=== PATIENT | female | born 1975 | race Caucasian/White ===

== ENCOUNTER 2022-01-30 08:16 | Outpatient (CLI) | payer OTHER, SELFPAY ==
[2022-01-30 13:06] LABS: Basophils Percent Auto 0.8 % (0.2-1.2); Eosinophils Absolute Auto 0.1 K/mm3 (0-0.3); Eosinophils Percent Auto 1.2 % (0-4.4); Hemoglobin 13.6 g/dL (12.0-15.0); Immature Granulocyte Absolute 0.01 K/mm3 (0.00-0.031); Immature Granulocyte Percent A 0.2 % (0-0.5); Lymphocytes Absolute Auto 1.73 K/mm3 (0.9-3.2); Lymphocytes Percent Auto 33.7 % (18.3-44.2); Mean Corpuscular Hemoglobin 32.6 pg (26-34); Mean Corpuscular Volume 95.9 fl (80-100); Mean Platelet Volume 9.4 fl (7.4-10.4); Monocytes Absolute Auto 0.4 K/mm3 (0.1-0.6); Monocytes Percent Auto 8.2 % (2.6-8.5); Neutrophils Absolute Auto 2.9 K/mm3 (1.3-6.7); Neutrophils Percent Auto 55.9 % (45.5-73.1); Platelet Count Result 270 k/mm3 (150-375); Red Blood Count 4.17 M/mm3 (4.2-5.4); Red Cell Distribution Width 11.9 % (11.5-14.5); White Blood Count 5.1 K/mm3 (4.5-10.0)
[2022-01-30 13:08] LABS: Alanine Aminotransferase 20 U/L (6-35); Albumin Level 4.3 g/dL (3.5-5.1); Alkaline Phosphatase 50 U/L (38-126); Anion Gap 12 mmol/L (8-16); Aspartate Amino Transferase 35 U/L (14-36); Bilirubin,Total 0.7 mg/dL (0.2-1.3); Blood Urea Nitrogen 13 mg/dL (7-17); Calcium 8.7 mg/dL (8.4-10.2); Carbon Dioxide 28 mmol/L (22-30); Chloride 103 mmol/L (98-107); Cholesterol 176 mg/dL (0-200); Estimated Glomerular Filt Rate > 60; Glucose 93 mg/dL (65-110); HDL Direct 67 mg/dL; Potassium 4.5 mmol/L (3.4-5.0); Sodium 143 mmol/L (137-145); Triglycerides 43 mg/dL (<150)
[2022-01-30 13:19] LABS: LDL Cholesterol Direct 82 mg/dL
[2022-01-30 13:41] LABS: Thyroid Stimulating Hormone 0.101 uIU/mL (0.465-4.680)
== END 2022-01-30 08:17 | disposition home or self-care (01) ==
LOC: ANHGOSHLAB 08:19
PROVIDERS: PCP Internal Medicine; Visit Provider Nurse Practitioner
DX: E03.9 Hypothyroidism, unspecified (principal); Z13.220 Encounter for screening for lipoid disorders
CPT/HCPCS: 36415; 80053; 80061; 84443; 85025

== ENCOUNTER 2022-11-24 08:16 | Outpatient (CLI) | payer OTHER, SELFPAY ==
[2022-11-24 13:05] LABS: Basophils Absolute Auto 0.1 K/mm3 (0.0-0.1); Basophils Percent Auto 1.2 % (0.2-1.2); Eosinophils Absolute Auto 0.2 K/mm3 (0-0.3); Eosinophils Percent Auto 3.8 % (0-4.4); Hematocrit 38.3 % (37.0-47.0); Hemoglobin 13.2 g/dL (12.0-15.0); Immature Granulocyte Absolute 0.01 K/mm3 (0.00-0.031); Immature Granulocyte Percent A 0.2 % (0-0.5); Lymphocytes Absolute Auto 1.83 K/mm3 (0.9-3.2); Lymphocytes Percent Auto 31.5 % (18.3-44.2); Mean Corpuscular HGB Conc 34.5 g/dl (32-36); Mean Corpuscular Volume 95.8 fl (80-100); Mean Platelet Volume 9.8 fl (7.4-10.4); Monocytes Absolute Auto 0.5 K/mm3 (0.1-0.6); Monocytes Percent Auto 8.8 % (2.6-8.5); Neutrophils Absolute Auto 3.2 K/mm3 (1.3-6.7); Neutrophils Percent Auto 54.5 % (45.5-73.1); Platelet Count Result 219 k/mm3 (150-375); Red Cell Distribution Width 11.9 % (11.5-14.5); White Blood Count 5.8 K/mm3 (4.5-10.0)
[2022-11-24 13:19] LABS: Alanine Aminotransferase 15 U/L (6-35); Albumin Level 4.3 g/dL (3.5-5.1); Alkaline Phosphatase 45 U/L (38-126); Anion Gap 7 mmol/L (8-16); Aspartate Amino Transferase 26 U/L (14-36); Bilirubin,Total 0.7 mg/dL (0.2-1.3); Blood Urea Nitrogen 12 mg/dL (7-17); Calcium 8.6 mg/dL (8.4-10.2); Carbon Dioxide 26 mmol/L (22-30); Chloride 105 mmol/L (98-107); Estimated Glomerular Filt Rate > 60; Glucose 88 mg/dL (65-110); Potassium 4.2 mmol/L (3.4-5.0); Sodium 138 mmol/L (137-145)
== END 2022-11-24 08:17 | disposition home or self-care (01) ==
LOC: ANHGOSHLAB 08:17
PROVIDERS: PCP Internal Medicine; Visit Provider Nurse Practitioner
DX: E03.9 Hypothyroidism, unspecified (principal); Z13.29 Encounter for screening for other suspected endocrine disorder
CPT/HCPCS: 36415; 80053; 84443; 85025

== ENCOUNTER 2024-03-29 08:04 | Outpatient (CLI) | payer OTHER, SELFPAY ==
[2024-03-29 14:52] LABS: Basophils Percent Auto 0.9 % (0.2-1.2); Eosinophils Absolute Auto 0.1 K/mm3 (0-0.3); Eosinophils Percent Auto 1.9 % (0-4.4); Hematocrit 37.3 % (37.0-47.0); Hemoglobin 12.7 g/dL (12.0-15.0); Immature Granulocyte Absolute 0.01 K/mm3 (0.00-0.031); Immature Granulocyte Percent A 0.2 % (0-0.5); Lymphocytes Absolute Auto 1.52 K/mm3 (0.9-3.2); Lymphocytes Percent Auto 32.6 % (18.3-44.2); Mean Corpuscular Hemoglobin 32.6 pg (26-34); Mean Corpuscular Volume 95.9 fl (80-100); Mean Platelet Volume 9.5 fl (7.4-10.4); Monocytes Absolute Auto 0.4 K/mm3 (0.1-0.6); Monocytes Percent Auto 8.6 % (2.6-8.5); Neutrophils Absolute Auto 2.6 K/mm3 (1.3-6.7); Neutrophils Percent Auto 55.8 % (45.5-73.1); Platelet Count Result 264 k/mm3 (150-375); Red Blood Count 3.89 M/mm3 (4.2-5.4); Red Cell Distribution Width 12.2 % (11.5-14.5); White Blood Count 4.7 K/mm3 (4.5-10.0)
[2024-03-29 17:07] LABS: Alanine Aminotransferase 15 U/L (6-35); Albumin Level 4.1 g/dL (3.5-5.1); Alkaline Phosphatase 44 U/L (38-126); Anion Gap 7 mmol/L (4-12); Aspartate Amino Transferase 34 U/L (14-36); Bilirubin,Total 0.7 mg/dL (0.2-1.3); Blood Urea Nitrogen 13 mg/dL (7-17); Calcium 8.6 mg/dL (8.4-10.2); Carbon Dioxide 29 mmol/L (22-30); Chloride 103 mmol/L (98-107); Cholesterol 170 mg/dL (0-200); Estimated Glomerular Filt Rate > 60; Glucose 76 mg/dL (65-110); HDL Direct 61 mg/dL; Potassium 4.5 mmol/L (3.4-5.0); Sodium 139 mmol/L (137-145); Triglycerides 42 mg/dL (<150)
[2024-03-29 17:10] LABS: Free T4 Free Thyroxine 1.25 ng/dL (0.78-2.19); Vitamin D 25 Hydroxy 33.7 ng/mL
[2024-03-29 17:18] LABS: LDL Cholesterol Direct 91 mg/dL
[2024-03-30 21:42] LABS: Triiodothyronine T3 Free 3.2 pg/mL (2.3-4.2)
== END 2024-03-29 08:05 | disposition home or self-care (01) ==
LOC: ANHGOSHLAB 08:06
PROVIDERS: PCP Internal Medicine; Visit Provider Nurse Practitioner
DX: E03.9 Hypothyroidism, unspecified (principal)
CPT/HCPCS: 36415; 80053; 80061; 82306; 84439; 84443; 84481; 85025

== ENCOUNTER 2024-07-31 01:10 | Day surgery (SDC) | payer OTHER, SELFPAY ==
[2024-07-25 08:38] VITALS: BMI 24.2
--- OUTSIDE RECORDS SUMMARY | 2024-07-31 01:13 | XMS_ITS | Clinical Summary ---
Author Organization [facility] Address [address] Attn: Marquita Prelukyara ADT JOSELYN ESTRELLA [address] Care Team Providers Care Medical Communication Specialist Name Role Phone Unavailable Primary Care Provider Unavailabl e Allergies No known active allergies Medications busPIRone (BUSPAR) 10 mg tablet Take 1 Tablet (10 mg) by mouth 3 times daily as needed. 90 Tablet 2 01/13/2022 8:25 AM CDT 2 Active busPIRone (BUSPAR) 10 mg tablet Take 1 Tablet by mouth Three times daily 270 Tablet 2 Active busPIRone (BUSPAR) 10 mg tablet Take 1 Tablet (10 mg) by mouth 3 times daily. 270 Tablet 1 02/15/2022 11:35 AM URBAN SOCIOLOGIST 2 Active sertraline (ZOLOFT) 50 mg tablet Take 1 Tablet (50 mg) by mouth daily. 90 Tablet 1 2 Active busPIRone (BUSPAR) 10 mg tablet Take 1 Tablet by mouth Three times daily 270 Tablet 1 11/25/2022 10:19 AM CDT 2 Active sertraline (ZOLOFT) 100 mg tablet Take 0.5 Tablets (50 mg) by mouth daily. 90 Tablet 1 12/15/2022 12:32 PM CDT 2 Active SUMAtriptan (IMITREX) 100 mg tablet Take 1 tablet by mouth at onset of headache; if no relief, may repeat 1 tablet after at least 2 hrs; max = 2 tabs/24 hrs 9 Tablet 1 03/11/2022 10:35 AM URBAN SOCIOLOGIST 2 Active levothyroxine 25 mcg tablet Take 1 Tablet (25 mcg) by mouth daily. 90 Tablet 03/11/2022 10:35 AM URBAN SOCIOLOGIST 2 Active busPIRone (BUSPAR) 10 mg tablet Take 1 Tablet (10 mg) by mouth 3 times daily. 270 Tablet 1 07/13/2023 5:23 PM CDT 3 Active sertraline (ZOLOFT) 100 mg tablet Take 0.5 Tablets (50 mg) by mouth daily. 90 Tablet 1 3 Active busPIRone (BUSPAR) 10 mg tablet Take 1 Tablet (10 mg) by mouth 3 times daily. 270 Tablet 1 4 Active sertraline (ZOLOFT) 50 mg tablet Take 1 Tablet (50 mg) by mouth daily. 90 Tablet 1 09/07/2023 7:29 PM CDT 4 Active SUMAtriptan (IMITREX) 100 mg tablet Take 1 tablet by mouth at onset of headache; if no relief, may repeat 1 tablet after at least 2 hrs; max = 2 tabs/24 hrs 9 Tablet 1 11/26/2023 2:03 PM CDT 4 Active sertraline (ZOLOFT) 50 mg tablet Take 1 Tablet (50 mg) by mouth daily. 90 Tablet 1 11/26/2023 2:03 PM CDT 4 Active sertraline (ZOLOFT) 50 mg tablet Take 1 Tablet (50 mg) by mouth daily. 90 Tablet 1 4 Active levothyroxine 25 mcg tablet Take 1 Tablet (25 mcg) by mouth daily. Need appointment for further refills. 30 Tablet 4 Active Encounters Date Type Department Care Team Description 05/23/2024 External Device Data [facility] ABSTRACTION Provider, Abstract 05/23/2024 External Device Data [facility] ABSTRACTION Provider, Abstract from Last 3 Months Immunizations Immunization Administration Dates Next Due INFLUENZA VACCINE QUADRIVALENT 6 MOS UP PF IM Social History Tobacco Use Types Packs/Day Years Used Date Smoking Tobacco: Never Assessed Comments Unknown Sex and Gender Information Value Date Recorded Sex Assigned at Not on file Legal Sex Female 3:27 PM CDT Gender Identity Not on file Sexual Orientation Not on file Plan of Treatment Health Maintenance Due Date Last Done Comments DTAP/TDAP/TD VACCINES (1 - Tdap) 1996 HEPATITIS B VACCINES (1 of 3 - 19+ 3-dose series) 1996 HPV/Cotest (21-29) 1998 CERVICAL CANCER SCREENING 09/18/2007 HPV/Cotest (30-65) 09/18/2007 PAP SMEAR 09/18/2007 BREAST CANCER SCREENING 2017 COLORECTAL SCREENING 2022 Colorectal Cancer Screening 2022 FIT-DNA Q 3 years 2022 FIT/FOBT Q 1 year 2022 Flex Sig/CT Colonography Q 5 years 2022 INFLUENZA VACCINE (#1) 2023 12/15/2022 HPV VACCINES Aged Out No longer eligi ble based on patient's age to complete this topic Insurance RX [facility] [employer] (INTERNAL) [facility]
--- OUTSIDE RECORDS SUMMARY | 2024-07-31 01:13 | XMS_ITS ---
Author Organization Unknown Medications Medication Instructions Effective Dates (start - stop) Status sumatriptan 100 MG Oral Tablet 2023-03-19 T00:00:00Z - Completed sumatriptan 100 MG Oral Tablet 2023 T00:00:00Z - Completed sumatriptan 100 MG Oral Tablet 2023-08-12 T00:00:00Z - Completed sumatriptan 100 MG Oral Tablet 2023-05-06 T00:00:00Z - Completed sumatriptan 100 MG Oral Tablet 2023-07-05 T00:00:00Z - Completed sertraline 50 MG Oral Tablet [id number] 0:00:00Z - Completed nitrofurantoin, macrocrystal s 25 MG / nitrofurantoin, monohydrate 75 MG Oral Capsule - Completed buspirone hydrochloride 10 M G Oral Tablet - Completed sumatriptan 100 MG Oral Tablet 2023-02-19 T00:00:00Z - Completed levothyroxine sodium 0.025 M G Oral Tablet - Completed sertraline 100 MG Oral Tablet 2022-12-14 00:00:00Z - Completed buspirone hydrochloride 10 M G Oral Tablet - Completed sumatriptan 100 MG Oral Tablet 2022-12-31 T00:00:00Z - Completed levothyroxine sodium 0.025 M G Oral Tablet - Completed sumatriptan 100 MG Oral Tablet 2022-11-25 T00:00:00Z - Completed Patient Care team information Name Category Status Period Participants - - Proposed period not known -
--- OUTSIDE RECORDS SUMMARY | 2024-07-31 01:13 | XMS_ITS | Referral Summary ---
Author Organization [facility] Address [address] [place] [address] Care Team Providers Care Horseshoer Name Role Phone Omar Fall DO Primary Care Provider [phone]- [phone] Allergies No known active allergies Medications Lactobacillus acidophilus (PROBIOTIC) 10 billion cell capsule 0 0 11/25/2012 Active multivitamin tablet tabletIndication s:Vitamin Deficiency Prevention Take 1 tablet by mouth. Active levothyroxine sodium (TIROSINT) 25 mcg capsule Take 25 mcg by mouth daily Active SUMAtriptan (IMITREX) 100 mg tabletIndication s:Migraine without status migrainosus, not intractable, unspecified migraine type TAKE ONE TABLET BY MOUTH AT ONSET OF HEADACHE. MAY REPEAT DOSE IN 2 HOURS IF NEEDED. DO NOT EXCEED 2 TABLETS IN 24 HOURS, 10 DAYS PER MONTH 12 tablet 1 05/15/2021 Active Active Problems Problem Noted Date Diagnosed Date Migraine without aura and wi thout status migrainosus, not intractable 12/24/2019 Migraine without status migrainosus, not intract able 06/05/2018 Migraine 01/02/2013 Overview (06/17/2016): Migraine Social History Tobacco Use Types Packs/Day Years Used Date Smoking Tobacco: Never Smokeless Tobacco: Never Alcohol Use Standard Drinks/Week Comments Yes 0 (1 standard drink = 0.6 oz pur e alcohol) Comments Unknown Sex and Gender Information Value Date Recorded Sex Assigned at Not on file Legal Sex Female 2:59 AM PROJECT LEADER Gender Identity Not on file Sexual Orientation Not on file Last Filed Vital Signs Vital Sign Reading Time Taken Comments Blood Pressure 126/81 06/23/2019 10:16 AM CDT Pulse 72 12/16/2017 3:38 PM CDT Temperature - - Respiratory Rate 16 12/16/2017 3:38 PM CDT Oxygen Saturation - - Inhaled Oxygen Concentration - - Weight 65.8 kg (145 lb) 09/13/2020 10:11 AM CDT Height 167.6 cm (5' 6 ) 09/13/2020 10:11 AM CDT Body Mass Index 23.4 09/13/2020 10:11 AM CDT Plan of Treatment Not on file Insurance [employer] Member Subscriber Plan / Payer (Ef fective 2019-Present) Name:Estelle Link Member ID:[id number] Relation to Subscriber:Self Name:Estelle Link Subscriber ID:[id number] Payer ID:[id number] Type:[employer] Address: [address] Care Teams Horseshoer Relationship Specialty Start Date End Date Omar Fall DO [facility] - General 04/09/14
--- OUTSIDE RECORDS SUMMARY | 2024-07-31 01:13 | XMS_ITS | Clinical Summary ---
Author Organization [facility] Address [address] [place] [address] Care Team Providers Care Emergency Medcl Emt Name Role Phone Omar Fall DO Primary Care Provider Source Comments [facility],non-owned Affiliates and Associated Physician Practices is amultiple site organization consisting of ambulatory clinics and hospital sitesin [place], [place], [place] and [place]. This disclosure is being madepursuant to the Care Everywhere program and may not contain all information available regarding this patient. Last updated 17.[facility] Allergies No known active allergies Medications * Be aware that medications may not be up to date on this document. Alwaysverify current medications with the patient. Probiotic Product (PROBIOTIC DAILY PO) Active SUMAtriptan (IMITREX) 100 MG tablet Take 100 mg by mouth as needed 01/03/2018 Active multivitamin (OPURITY) CHEW tablet Take 1 tablet by mouth Active levothyroxine (SYNTHROID) 25 MCG tablet 11/12/2018 Active SUMAtriptan (IMITREX) 100 MG tablet TAKE ONE TABLET AT ONSET OF MIGRAINE, MAY REPEAT IN 2 HOURS. MAX DOSE 2 TABLETS IN 24 HOURS OR 10 TABLETS PER MONTH 05/13/2018 Active Active Problems Problem Noted Date Diagnosed Date AMA (advanced maternal age) multigravida 35+ Overview (10/04/2014): Normal NIPT Elevated blood pressure 10/04/2014 Overview (10/04/2014): Labile BPs Labs wnl 10/01, with pr/cr ratio of 0.42 Growth on 09/28, 3185gm, (73%tile) Encounter for supervision of other normal pregna ncy 10/01/2014 Overview (01/20/2015): Dating by: L/8wk u/s PNL: A-/I/-/-; HIV NR GC/CT neg/neg Pap smear: UTD 09/2012 with negative co- testing GCT: 109 GBS: neg Labile blood pressure 10/01/2014 Previous section 10/01/2014 Overview (10/01/2014): LTCS for arrest of descent at 38w1d. Infant 3153 grams. Desires TOLAC Rh negative status during 04/07/2011 Overview (10/04/2014): Received Rhogam 07/27/14 Resolved Problems Problem Noted Date Diagnosed Date Resolved Date Tachycardia 07/22/2011 10/01/2014 Overview (07/22/2011): Sinus tachycardia Holter and Echo wnl. Patient to f/u with cardiology PP. Supervision of normal first 04/07/2011 10/01/2014 Anxiety 04/07/2011 10/01/2014 Immunizations Immunization Administration Dates Next Due INFLUENZA VACCINE, QUADR. (F LUZONE; FLULAVAL; FLUARIX; AFLURIA QUADRIVALENT; 6MO+), 0.5 ML (IIV4) 12/29/2019,01/08/2019 Rho D Immune Globulin 10/05/2014 Family History Medical History Relation Name Comments Hypercholesterolemia Father Hypertension Father Cancer Maternal Grandfather skin Cancer Maternal Grandmother skin Hypercholesterolemia Mother Hypertension Mother Thyroid Disease Mother Heart Failure Paternal Grandfather Relation Name Status Comments Father Alive Maternal Grandfather Maternal Grandmother Alive Mother Alive Paternal Grandfather Paternal Grandmother Social History Tobacco Use Types Packs/Day Years Used Date Smoking Tobacco: Never Smokeless Tobacco: Never Tobacco Cessation:Counseling Given: Not Answered Alcohol Use Standard Drinks/Week Comments No 0 (1 standard drink = 0.6 oz pur e alcohol) PHQ-2 Answer Date Recorded Patient Health Questionnaire-2 Score 1 08/23/2023 Comments No Sex and Gender Information Value Date Recorded Sex Assigned at Not on file Legal Sex Female 1:03 PM CONTROL INTEGRATION ENGINEER Gender Identity Not on file Sexual Orientation Not on file Last Filed Vital Signs Vital Sign Reading Time Taken Comments Blood Pressure 122/80 08/30/2023 2:09 PM CDT Pulse 96 10/06/2014 8:35 AM CDT Temperature 36.6 C (97.8 F) 10/06/2014 8:35 AM CDT Respiratory Rate 18 10/06/2014 8:35 AM CDT Oxygen Saturation 98% 10/05/2014 2:47 AM CDT Inhaled Oxygen Concentration - - Weight 69.4 kg (153 lb) 04/21/2024 11:37 AM CONTROL INTEGRATION ENGINEER Height 167.6 cm (5' 6 ) 04/21/2024 11:37 AM CONTROL INTEGRATION ENGINEER Body Mass Index 24.69 04/21/2024 11:37 AM CONTROL INTEGRATION ENGINEER Plan of Treatment Upcoming Encounters Date Type Department Care Team (Late st Contact Info) Description 10/16/2024 2:45 PM CDT Office Visit [facility] [address] [place] [address] Gloria Garcia MD [address] [place] [address] Health Maintenance Due Date Last Done Comments COLOGUARD (AGES 45-75) - COLON CA SCREENING 1977 COLON MONITORING 1977 COLONOSCOPY - COLON CA SCREENING 1977 CT COLONOGRAPHY - COLON CA SCREENING 1977 Colorectal Cancer Screening 1977 FIT - COLON CA SCREENING 1977 FLEX SIG - COLON CA SCREENING 1977 LIPID TESTING 1977 HEPATITIS C SCREENING 09/13/1995 DTAP/TDAP/TD VACCINES (1 - Tdap) 1996 HEPATITIS B VACCINE (1 of 3 - 19+ 3-dose series) 1996 COVID-19 VACCINE ( season) 2023 01/31/2022, 03/12/2021, 07/04/2020, Additional history exists DEPRESSION SCREENING 03/15/2024 08/30/2023 MAMMOGRAM 04/21/2026 04/21/2024, 12/0 10/2022, 01/30/2022, Additional history exists ZOSTER VACCINE (1 of 2) 09/18/2027 PAP with HPV 08/29/2028 08/30/2023, 01/20/2019 HIV SCREENING Completed 03/19/2014, 12/25/2010 INFLUENZA VACCINE Completed 12/23/2023, , 01/09/2022, Additional history exists HIB VACCINE Aged Out No longer eligi ble based on patient's age to complete this topic HPV VACCINE Aged Out No longer eligi ble based on patient's age to complete this topic MENINGOCOCCAL (Group B) VACCINE SHARED DECISION-MAKING Aged Out No longer eligible based on patient's age to complete this topic MENINGOCOCCAL GROUPS A/C/Y/W VACCINE Aged Out No longer eligible based on patient's age to complete this topic PNEUMOCOCCAL VACCINE Aged Out No long er eligible based on patient's age to complete this topic Procedures Procedure Name Priority Date/Time Associated Diagnosis Comments MAMMO BILAT SCREENING W CARLOS Routine 04/21/2024 11:54 AM CONTROL INTEGRATION ENGINEER Visit for screening mammogram HPV DETECTION HIGH RISK IZABELA Routine 08/30/2023 4:17 PM CDT Well woman exam HIV-1 HIV-2 ANTIBODIES W RFLX REFLEXED Routine 03/19/2014 11:57 AM CONTROL INTEGRATION ENGINEER from Last 3 Months or Most Recently Relevant to Health Maintenance Results * Mammo Bilat Screening W Carlos (04/21/2024 11:54 AM CONTROL INTEGRATION ENGINEER) Anatomical Region Laterality Modality Breast Bilateral Mammography 04/25/2024 3:43 PM CONTROL INTEGRATION ENGINEER Impressions 04/25/2024 3:44 PM CONTROL INTEGRATION ENGINEER IMPRESSION: There is no mammographic evidence of malignancy. OVERALL FINAL ASSESSMENT: BI-RADS Category 1: Negative. Annual screening mammography is recommended. > Interpreting Provider: Guadalupe La MD on 04/25/2024 3:44 PM Narrative 04/25/2024 3:44 PM CONTROL INTEGRATION ENGINEER EXAMINATION: BILATERAL DIGITAL SCREENING MAMMOGRAM AND BILATERAL BREAST TOMOSYNTHESIS HISTORY: Screening. COMPARISON: Serial examinations dating back to 2019. TECHNIQUE: BILATERAL digital breast tomosynthesis (DBT) and synthetic 2D digital mammogram images were obtained (bilateral craniocaudal and mediolateral oblique projections) including computer aided detection (CAD.) BREAST PARENCHYMAL COMPOSITION:Category C: The breasts are heterogeneously dense which may obscure small masses. MAMMOGRAM FINDINGS: There are no new suspicious masses, calcifications, or areas of architectural distortion in either breast, and there has been no significant interval change. Omar Fall DO MAMMO ORDERABLES Final Resu lt * HPV DETECTION HIGH RISK IZABELA (08/30/2023 4:17 PM CDT) High Risk Human Papilloma Result Not detected Not detected 09/03/2023 6:07 AM CDT [facility] High Risk Human Papilloma Interp 09/03/2023 6:07 AM CDT [facility] Comment:High Risk Human Jose Antonio lloma Virus was Not Detected. Pathology/Cytolo gy MISCELLANEOUS SAMPLES / Unknown 08/30/2023 4:17 PM CDT 08/31/2023 11:52 AM CDT Narrative [facility] - 09/03/2023 6:07 AM CDT Nucleic acid isolated from the specimen was analyzed with a nucleic acid amplification test (FDA approved Gen-Probe HPV Assay) to detect high risk human papilloma virus (Types: 16, 18, 31, 33, 35, 39, 45, 51, 52, 56, 58, 59, 66, and 68). The reference range is Not Detected . Comment: These test results should not be used as the sole basis for clinical assessment and treatment of patients. These results should always be correlated with other available data (cytology, histology, and clinical information). Gloria Garcia MD LAB - MICROBIOLOGY O RDERABLES Final Result [facility] [address] [place] [address], [facility] [phone] * HIV-1 HIV-2 ANTIBODIES W RFLX REFLEXED (03/19/2014 11:57 AM CONTROL INTEGRATION ENGINEER) HIV 1/2 EIA Antibody NON-REACT TANO NON-REACT TANO [facility] ([facility]) Comment: A Nonreactive HIV 1/2 antibody result does not exclude HIV infection since the time frame for seroconversion is variable. If acute HIV infection is suspected, HIV-1 RNA TMA Qualitative (88934) testing is recommended. PLEASE NOTE: This information has been disclosed to you from records whose confidentiality may be protected by state law. If your state requires such protection, then the state law prohibits you from making any further disclosure of the information without the specific written consent of the person to whom it pertains, or as otherwise permitted by law. A general authorization for the release of medical or other information is NOT sufficient for this purpose. Test Performed at: [facility] [id number] [place] [address] REGINA MCKEON DO,MPH 03/19/2014 11:5 7 AM CONTROL INTEGRATION ENGINEER 03/19/2014 12:00 PM CONTROL INTEGRATION ENGINEER Karol Kim MD LAB - CHEMISTRY ORDERABLE S Edited Result - Final [facility] ([facility]) [id number] from Last 3 Months or Most Recently Relevant to Health Maintenance Insurance [employer] Advance Directives * Full Code (Latest Code Status on File) Date Activated Date Inactivated Comments 10/04/2014 5:57 AM 10/06/2014 6:44 PM * FULL RESUSCITATION Date Activated Date Inactivated Comments 07/22/2011 3:38 AM 07/28/2011 3:56 AM Care Teams Emergency Medcl Emt Relationship Specialty Start Date End Date Omar Fall DO PCP - General Internal Medicine 10/01/14
--- OUTSIDE RECORDS SUMMARY | 2024-07-31 01:13 | XMS_ITS | Clinical Summary ---
Author Organization [facility] Address [address] [place] [address] Care Team Providers Care Warehouse Team Member Name Role Phone Omar Fall DO Primary Care Provider +1- [phone] Allergies No known active allergies Medications Lactobacillus [...] able 06/05/2018 Migraine 01/02/2013 Overview (06/17/2016): Migraine Surgical History Surgery Date Site/Laterality Comments SECTION 2011 section OTHER SURGICAL HISTORY 2002 ovarian cyst: resected OTHER SURGICAL HISTORY anxiety: counseling Medical History Medical History Date Comments Cyst of ovary ovarian cyst Anxiety disorder anxiety; Outcom e: improved Hx Other Medical Headache, migra ine Migraine Family History Medical History Relation Name Comments Lupus Brother Systemic lupus erythematosus; Other Daughter 2 Alive and well; Migraines Father Migraines; Relation Name Status Comments Brother Daughter 1 Alive Daughter 2 Father Alive Social History Tobacco Use Types Packs/Day Years Used Date Smoking Tobacco: Never Smokeless Tobacco: Never Alcohol Use Standard Drinks/Week Comments Yes 0 (1 standard drink = 0.6 oz pur e alcohol) Comments Unknown Sex and Gender Information Value Date Recorded Sex Assigned at Not on file Legal Sex Female 2:59 AM MAT MAKING MACHINE TENDER Gender Identity Not on file Sexual Orientation Not on file Obstetrics History Last Filed Vital Signs Vital Sign Reading [...] Plan of Treatment Not on file [place] [id number] Care Teams Warehouse Team Member Relationship Specialty Start Date End Date Omar Fall DO PCP - General 04/09/14
[2024-07-31 06:16] VITALS: BP 124/80; PULSE 94; RESP 18; TEMP 36.3; O2SAT 100; BMI 24.7
[2024-07-31 06:20] LABS: BEDSIDEPREGUCG Negative (Negative)
[2024-07-31] MEDS: LACTATED RINGERS 1,000 ML 150 ML IV CONT (06:26)
--- NOTE | 2024-07-31 06:30 | WPDANESEPPF ---
Anes - Initial Pre Proc Eval Procedure: Operation Date: 07/31/24 07:30 Proposed Procedures p Screening Colonoscopy - Kb Bravo DO Date/Time: 07/31/24 06:30 Surgeon: Kb Bravo DO Pre Op Diagnosis: Screening for malignant neoplasm of colon Patient Data Age: 48 Gender: F Height: 1.68 m Weight: 69.5 kg Last Vital Signs Temp 36.3 C L 07/31/24 06:16 Pulse 94 07/31/24 06:16 Resp 18 07/31/24 06:16 BP 124/80 07/31/24 06:16 Pulse Ox 100 07/31/24 06:16 O2 Del Method Room Air 07/31/24 06:16 Allergies Allergy/AdvReac Type Severity Reaction Status Date / Time No Known Allergies Allergy Verified 07/31/24 06:13 Home Medications Medication Instructions Recorded Confirmed Type lactobacillus combination no.8 3 3,000 mmu cells PO DAILY 05/23/19 07/31/24 History billion cell capsule (Adult Probiotic) multivitamin 1 tablet PO DAILY 05/23/19 07/31/24 History buspirone 5 mg tablet 5 mg PO BID 01/18/20 07/31/24 History sertraline 25 mg tablet 25 mg PO DAILY 10/24/21 07/31/24 History levothyroxine 25 mcg tablet 25 mcg PO DAILY #90 tabs 04/28/24 07/31/24 Rx sumatriptan succinate 100 mg tablet See Rx Instructions .Route 06/08/24 07/25/24 Rx .COMPLEX #9 tabs Laboratory Tests 07/31/24 06:16 POC Urine HCG, Qual Negative (Negative) Patient hx anesthesia problems: none Family hx anesthesia problems: none Results Review: All pre-operative results and documents have been reviewed as part of the pre-operative evaluation. [facility] Past Medical History Medical History HTN (hypertension) Headache, migraine Hypothyroidism OCD (obsessive compulsive disorder) Anxiety Heart murmur Surgical History Surgical History Delivery by section 2011 Family History Family History Mother Family history of mental disorder Social History Social History Smoking status: Never smoker Alcohol intake: never Substance use: never Substance use type: does not use Do You Feel Safe in your Home?: Yes Lack of Transportation: No Lack of Food: Never True Current Housing: I Have Housing Concerned About Future Housing: No Difficulty Paying Gas/Electric Bills: No Difficulty Paying for Meds: No Currently Unemployed: No Education: Bachelor's Degree Difficulty w/ Childcare or Family Care: No Living arrangements: with family Spiritual care concerns: No Anes - Eval Final PreProcedure Day of Procedure 07/31/24 06:30 Patient weight: normal Heart: regular rate and rhythm Lungs: clear to auscultation Airway: Mallampati scale class II Neurological: alert and oriented Last oral intake: >/= 8 hours ASA classification: II Emergent: no Anesthetic plan: proceed Anesthesia type and monitoring: general GIVS and standard monitoring Results Review: All pre-operative results and documents have been reviewed as part of the pre-operative evaluation. Informed Consent: The patient's anesthetic plan and its attendant risks and benefits were discussed with the patient/family/POA. Questions were solicited and answers provided to the satisfaction of the patient/family/POA.
--- NOTE | 2024-07-31 07:31 | P.HP_ITS ---
H&P: HPI History of Present Illness Date/Time: 07/31/24 07:31 Chief Complaint: Screening for colorectal cancer Narrative: this is a 48-year-old woman who presents for colonoscopy. She has never had a colonoscopy before. She denies any hematochezia or melena. She denies any family history of colon cancer. Review of Systems Review of Systems: All systems reviewed & are unremarkable except as noted in HPI and below Constitutional: Constitutional: Denies chills, Denies fever(s), Denies headache(s) and Denies weight loss Eyes: Eyes: Denies change in vision ENT: Denies dizziness, Denies headache(s), Denies neck mass and Denies throat swelling Cardiovascular: Cardiovascular: Denies chest pain, Denies lightheadedness and Denies dyspnea Respiratory: Respiratory: Denies cough, Denies dyspnea and Denies wheezing Gastrointestinal: Gastrointestinal: Denies abdominal pain, Denies change in bowel habits, Denies nausea and Denies vomiting Genitourinary: Genitourinary: Denies hematuria and Denies dysuria Musculoskeletal: Musculoskeletal: Reports as per HPI Integumentary/Breasts: Skin/Breast: Reports as per HPI Neurologic: Denies dizziness and Denies headache(s) Allergic/Immunologic: Allergic/Immunologic: Denies throat swelling and Denies wheezing [facility] Past Medical History Medical History HTN (hypertension) Headache, migraine Hypothyroidism OCD (obsessive compulsive disorder) Anxiety Heart murmur Surgical History Surgical History Delivery by section 2012 Family History Family History Mother Family history of mental disorder Social History Social History Smoking status: Never smoker Alcohol intake: never Substance use: never Substance use type: does not use Do You Feel Safe in your Home?: Yes Lack of Transportation: No Lack of Food: Never True Current Housing: I Have Housing Concerned About Future Housing: No Difficulty Paying Gas/Electric Bills: No Difficulty Paying for Meds: No Currently Unemployed: No Education: Bachelor's Degree Difficulty w/ Childcare or Family Care: No Living arrangements: with family Spiritual care concerns: No Meds Home Medications and Allergies Home Medications Medication Instructions Recorded Confirmed Type lactobacillus combination no.8 3 3,000 mmu cells PO DAILY 05/23/19 07/31/24 History billion cell capsule (Adult Probiotic) multivitamin 1 tablet PO DAILY 05/23/19 07/31/24 History buspirone 5 mg tablet 5 mg PO BID 01/18/20 07/31/24 History sertraline 25 mg tablet 25 mg PO DAILY 10/24/21 07/31/24 History levothyroxine 25 mcg tablet 25 mcg PO DAILY #90 tabs 04/28/24 07/31/24 Rx sumatriptan succinate 100 mg tablet See Rx Instructions .Route 06/08/24 07/25/24 Rx .COMPLEX #9 tabs Allergies Allergy/AdvReac Type Severity Reaction Status Date / Time No Known Allergies Allergy Verified 07/31/24 06:13 Vital Signs Vital Signs - 24 hr 07/31/24 06:16 Temperature 97.4 F L Pulse Rate 94 Respiratory Rate 18 Blood Pressure 124/80 Pulse Oximetry 100 Oxygen Delivery Room Air Exam Const: General: no acute distress and alert Orientation/consciousness: patient oriented x3 HENMT: Head: normocephalic and atraumatic Ears: hearing grossly normal bilaterally Face/Nose/Sinus: Normal nares present Mouth: Yes Normal oral and palatal mucosa present Eyes: Periorbital: periorbital findings normal Sclera: sclerae normal EOM: EOMs intact bilaterally Neck: Neck: normal visual inspection, no lymphadenopathy and trachea midline Chest: Chest palpation & inspection: normal inspection of the chest Resp: Effort & Inspection: normal respiratory effort Auscultation: clear to auscultation bilaterally Cardio: Jugular venous distension: no JVD Rate: regular rate Rhythm: regular rhythm Heart sounds: S1 normal heart sound present and S2 normal heart sound present Peripheral pulses: Peripheral pulses 2+ throughout GI: Inspection: normal to inspection GI Palp: Yes Soft to palpation, No Tenderness to palpation present (GI), No Guarding due to palpation present (GI) and No Rebound tenderness present Percussion: Yes normal to percussion Auscultation: normal bowel sounds : General: Yes no CVA tenderness Back/Spine/Pelvis: Back: no CVA tenderness Neuro: General: patient oriented x3, no focal motor deficits and CN's II-XI intact bilaterally Cognition (Neuro): normal cognition Speech: normal speech Motor exam (neuro): 5/5 motor strength present throughout Extrem: General: capillary refill normal and no clubbing, cyanosis or edema Assessment and Plan Assessment and plan (1) Screening for colon cancer: Code(s): Z12.11 - Encounter for screening for malignant neoplasm of colon Status: Acute Assessment and Plan: I have recommended colonoscopy. I have discussed the procedure, risks, benefits, and alternatives. Questions were answered. Patient is agreeable to proceed.
[2024-07-31 07:49] VITALS: BP 90/52; PULSE 82; RESP 24; O2SAT 96
[2024-07-31 07:59] VITALS: BP 93/55; PULSE 81; RESP 22; O2SAT 96
[2024-07-31 08:07] VITALS: BP 122/62; PULSE 86; RESP 20; O2SAT 100
== END 2024-07-31 08:31 | disposition home or self-care (01) ==
PROVIDERS: Anesthesiology; PCP Internal Medicine; Visit Provider Surgery
PROC: 0DJD8ZZ Inspection of Lower Intestinal Tract, Via Natural or Artificial Opening Endoscopic (ICD-10-PCS; CPT 45378; principal; 2024-07-31 07:30)
DX: Z12.11 Encounter for screening for malignant neoplasm of colon (principal)
CPT/HCPCS: 45378; J2003; J2704; J7120

== ENCOUNTER 2024-11-24 11:40 | Outpatient (CLI) | payer OTHER, SELFPAY ==
[2024-11-24 19:13] LABS: Alanine Aminotransferase 13 U/L (6-35); Albumin Level 4.3 g/dL (3.5-5.1); Alkaline Phosphatase 47 U/L (38-126); Anion Gap 7 mmol/L (4-12); Aspartate Amino Transferase 37 U/L (14-36); Bilirubin,Total 0.6 mg/dL (0.2-1.3); Blood Urea Nitrogen 9 mg/dL (7-17); Calcium 8.8 mg/dL (8.4-10.2); Carbon Dioxide 29 mmol/L (22-30); Chloride 103 mmol/L (98-107); Estimated Glomerular Filt Rate > 60; Glucose 77 mg/dL (65-110); Potassium 4.7 mmol/L (3.4-5.0); Sodium 139 mmol/L (137-145); Total Protein 7.8 g/dL (6.3-8.2)
[2024-11-24 19:31] LABS: Free T3 3.65 pg/mL (2.71-6.16); Free T4 Free Thyroxine 1.40 ng/dL (0.78-2.19)
[2024-11-24 19:46] LABS: Thyroid Stimulating Hormone 2.370 uIU/mL (0.465-4.680)
== END 2024-11-24 11:41 | disposition home or self-care (01) ==
LOC: ANHGOSHLAB 11:41
PROVIDERS: PCP Internal Medicine; Visit Provider Nurse Practitioner
DX: E03.9 Hypothyroidism, unspecified (principal); G43.909 Migraine, unspecified, not intractable, without status migrainosus
CPT/HCPCS: 36415; 80053; 84439; 84443; 84481